=== PATIENT | male | born 1980 | race Caucasian/White ===

== ENCOUNTER 2021-06-20 13:55 | Outpatient (CLI) | payer BC ==
[~2021-06-20] VITALS: Ht 170.2 cm; Wt 97.7 kg
[2021-06-20 13:57] VITALS: BP 122/68; PULSE 61; TEMP 98.2
[2021-06-20] MEDS ORDERED: ZESTRIL 5MG5 MG PO (13:59)
[2021-06-20] MEDS ORDERED: ADVIL200 MG PO (14:00)
[2021-06-20 14:15] VITALS: BP 113/64; PULSE 61
[2021-06-20 14:30] VITALS: BP 110/64; PULSE 62
[2021-06-20 15:00] VITALS: BP 109/67; PULSE 62
[2021-06-20 15:15] VITALS: BP 103/67; PULSE 66
== END 2021-06-20 16:59 ==
LOC: EUO 13:55
DX: R50.9 Fever, unspecified (principal); R51.9 Headache, unspecified; R53.81 Other malaise
CPT/HCPCS: Q0244